=== PATIENT | female | born 1945 | race Caucasian/White ===

== ENCOUNTER → 2018-01-14 | Outpatient (CLI) | payer OTHER ==
[~2018-01-14] MED LIST: OMNIPAQUE 350 MG/ML, 100ML BOTTLE ONE
== END | disposition home or self-care (01) ==
LOC: CFH 07:03
PROVIDERS: ATTEND Family Medicine
DX: R60.0 Localized edema (principal); M79.89 Other specified soft tissue disorders; Z85.43 Personal history of malignant neoplasm of ovary
CPT/HCPCS: 74177; Q9967